=== PATIENT | male | born 1990 | race Caucasian/White ===

== ENCOUNTER 2017-10-29 15:46 | Inpatient (IN) | payer BC, OTHER ==
[~2017-10-29] VITALS: Ht 175.3 cm; Wt 65.8 kg
[2017-10-29 16:40] VITALS: BP 117/65
[2017-10-29 18:32] LABS: *AMPHETAMINE, URINE POSITIVE (NEGATIVE); *BARBITURATE, URINE NEGATIVE (NEGATIVE); *CANNABINOID, URINE POSITIVE (NEGATIVE); *COCCAINE, URINE NEGATIVE (NEGATIVE); *OPIATE, URINE NEGATIVE (NEGATIVE); *PHENCYCLIDINE SCREEN,URINE NEGATIVE (NEGATIVE)
[2017-10-29] MEDS ORDERED: ACETAMINOPHEN 325 MG TABLET PO PRN (19:30)
[2017-10-29] MEDS ORDERED: IBUPROFEN 600 MG TABLET PO PRN (19:30)
[2017-10-29] MEDS ORDERED: MAG HYDROX/AL HYDROX/SIMETH 30 ML LIQUID UDC PO PRN (19:30)
[2017-10-29] MEDS ORDERED: MIRALAX 17 GM POWD.PACK PO PRN (19:30)
[2017-10-29] MEDS ORDERED: MAGNESIUM HYDROXIDE 30 ML LIQUID UDC PO PRN (19:30)
[2017-10-29] MEDS ORDERED: METHOCARBAMOL 750 MG TABLET PO PRN (19:30)
[2017-10-29] MEDS ORDERED: LOPERAMIDE HCL 2 MG CAPSULE PO PRN ×2 (19:30)
[2017-10-29] MEDS ORDERED: DICYCLOMINE HCL 20 MG TABLET PO PRN (19:30)
[2017-10-29] MEDS ORDERED: ONDANSETRON ODT 4 MG TAB.RAPDIS SL PRN (19:30)
[2017-10-29] MEDS ORDERED: HYDROXYZINE PAMOATE 25 MG CAPSULE PO PRN (19:30)
[2017-10-29] MEDS ORDERED: ONDANSETRON 4 MG/2 ML VIAL IM PRN (19:30)
[2017-10-29] MEDS ORDERED: diphenhydrAMINE 50 MG CAPSULE PO PRN (19:30)
[2017-10-29 20:15] VITALS: BP 121/67
[2017-10-29] MEDS ORDERED: diphenhydrAMINE 50 MG CAPSULE PO SCH (21:00)
[2017-10-29 21:23] LABS: BASOPHILS % (AUTO) 0.5 % (0.0-2.0); EOSINOPHILS # (AUTO) 0.1 K/uL (0.0-0.7); EOSINOPHILS % (AUTO) 1.2 % (0.0-7.0); HEMATOCRIT 43.7 % (36.7-47.1); HEMOGLOBIN 14.8 g/dL (12.5-16.3); LYMPHOCYTES # (AUTO) 2.1 K/uL (20.0-40.0); LYMPHOCYTES % (AUTO) 26.3 % (20.5-51.5); MEAN CORPUSCULAR HEMOGLOBIN 29.3 uug (23.8-33.4); MEAN CORPUSCULAR HGB CONC 34 g/dL (32.5-36.3); MEAN CORPUSCULAR VOLUME 86.5 fL (73.0-96.2); MONOCYTES # (AUTO) 0.9 K/uL (2.0-10.0); MONOCYTES % (AUTO) 11.7 % (0.0-11.0); NEUTROPHILS # (AUTO) 4.9 K/uL (1.8-8.9); NEUTROPHILS % (AUTO) 60.3 % (38.5-71.5); PLATELET COUNT (AUTO) 313 K/uL (152-348); RED BLOOD CELL COUNT(AUTO) 5.04 MIL/uL (4.06-5.63); WHITE BLOOD COUNT (AUTO) 8.1 K/uL (3.6-10.2)
[2017-10-29 21:37] LABS: ETHANOL < 3 MG/DL (0-0)
[2017-10-29 21:39] LABS: ALANINE AMINOTRANSFERASE 38 U/L (16-63); ALKALINE PHOSPHATASE 148 U/L (50-136); ASPARTATE AMINOTRANSFERASE 25 U/L (15-37); BILIRUBIN,TOTAL 0.4 mg/dL (0.2-1.0); CARBON DIOXIDE 30 mmol/L (21-32); CHLORIDE 101 mmol/L (98-107); GLUCOSE 91 mg/dL (74-106); POTASSIUM 3.5 mmol/L (3.5-5.1); TOTAL PROTEIN, SERUM 8.2 g/dL (6.4-8.2); UREA NITROGEN, BLOOD 12 mg/dL (7-18)
[2017-10-29 21:48] LABS: THYROID STIMULATING HORMONE 0.809 mIU/mL (0.358-3.740)
[2017-10-29 21:49] LABS: MAGNESIUM 1.9 mg/dL (1.8-2.4)
[2017-10-30 00:25] VITALS: BP 127/74
[2017-10-30 04:18] VITALS: BP 124/72
[2017-10-30 08:00] VITALS: BP 111/66
[2017-10-30] MEDS: CLONIDINE HCL 0.1 MG TABLET PO PRN ×2 (08:42→16:43)
[2017-10-30] MEDS ORDERED: TUBERCULIN,PURIF.PROT.DERIV. 5 TU/0.1 ML TEST ID ONE (09:00)
[2017-10-30 12:00] VITALS: BP 104/62
[2017-10-30 16:00] VITALS: BP 109/63
[2017-10-30] MEDS ORDERED: GABAPENTIN 300 MG CAPSULE PO SCH (16:00)
[2017-10-30] MEDS ORDERED: LITH600C PO (16:01)
[2017-10-30] MEDS ORDERED: FLUO20CA36 PO (16:01)
[2017-10-30] MEDS ORDERED: OLAN15TA3 PO (16:01)
[2017-10-30] MEDS ORDERED: GABA-534 PO (19:29)
[2017-10-30] MEDS ORDERED: IBUP-1955 PO (19:29)
[2017-10-30] MEDS ORDERED: HYDR-3895 PO (19:29)
[2017-10-30] MEDS ORDERED: DIPH50CA37 PO (19:29)
[2017-10-30] MEDS ORDERED: METH-406 PO (19:29)
[2017-10-30 20:00] VITALS: BP 106/67
[2017-10-30] MEDS: GABAPENTIN 300 MG CAPSULE PO SCH (20:39)
[2017-10-30] MEDS ORDERED: LITHIUM CARBONATE 300 MG TABLET PO SCH (21:00)
[2017-10-30] MEDS ORDERED: QUETIAPINE FUMARATE 100 MG TABLET PO ONE (21:00)
[2017-10-31] MEDS: GABAPENTIN 300 MG CAPSULE PO SCH (08:49)
[2017-10-31 08:50] VITALS: BP 102/54
[2017-10-31] MEDS ORDERED: OLANZAPINE 5 MG TABLET PO SCH (09:00)
[2017-10-31 12:07] LABS: HEPATITIS B SURFACE AG Negative (Negative)
== END 2017-10-31 09:15 | disposition other institution (70) | DRG 897 ==
LOC: SRC 16:20
PROVIDERS: ADMIT Internal Medicine; ATTEND Internal Medicine
PROC: HZ2ZZZZ Detoxification Services for Substance Abuse Treatment (ICD-10-PCS; principal; 2017-10-29)
DX: F15.23 Other stimulant dependence with withdrawal (principal); F11.20 Opioid dependence, uncomplicated; F31.9 Bipolar disorder, unspecified; F12.90 Cannabis use, unspecified, uncomplicated; Z91.14 Patient's other noncompliance with medication regimen; F90.9 Attention-deficit hyperactivity disorder, unspecified type; Z59.1 Inadequate housing; F17.210 Nicotine dependence, cigarettes, uncomplicated; F41.9 Anxiety disorder, unspecified; Z59.0 Homelessness; R74.0 Nonspecific elevation of levels of transaminase and lactic acid dehydrogenase [LDH]
CPT/HCPCS: 36415; 80307; 80324; 80349; 83735; 84443; 85025; 86580; 86592; 86705; 86803; 87340; 87806; G0480; Q0163

== ENCOUNTER 2018-04-19 10:32 | Emergency (ER) | payer BC, OTHER ==
[~2018-04-19] VITALS: Ht 170.2 cm; Wt 68.0 kg
[~2018-04-19 10:32] MED LIST: DIPH50CA37 PO; GABA-534 PO; HYDR-3895 PO; IBUP-1955 PO; METH-406 PO
--- NOTE | 2018-04-19 10:45 | NUR ---
CALLED THE PT FOR TRIAGE. PT SAID THE PT IS HERE FOR LAB WORK REQUESTED BY [facility] THE PT IS RESIDING NOW. PT DECIDED TO LEAVE BECAUSE PT WAS NO CLEAR WHAT NEEDS TO BE DONE. EXPLAINED TO PT THAT HE CAN BE CHECKED AND DO BASIC MEDICAL CLEARANCE. BUT PT DECIDED TO LEAVE ANDCOME BACK AGAIN WTH MORE DETAILS. PT WAS TOLD THAT HE IS WELCOMED ANY TIME CHECKED IN.
--- NOTE | 2018-04-19 10:50 | NUR ---
CALLED [facility] TO VERIFY THE REASON PT IS HERE. YAMILET SAID THAT THE PT NEEDS BASIC MEDICAL CLEARANCE. PT AGREED TO STAY AND BE TRIAGED AND SEEN BY .
[2018-04-19 11:31] LABS: BASOPHILS # (AUTO) 0.1 K/uL (0.0-8.0); BASOPHILS % (AUTO) 0.7 % (0.0-2.0); EOSINOPHILS # (AUTO) 0.3 K/uL (0.0-0.7); HEMATOCRIT 38.9 % (36.7-47.1); HEMOGLOBIN 13.3 g/dL (12.5-16.3); LYMPHOCYTES # (AUTO) 1.8 K/uL (20.0-40.0); LYMPHOCYTES % (AUTO) 21.1 % (20.5-51.5); MEAN CORPUSCULAR HEMOGLOBIN 31.4 uug (23.8-33.4); MEAN CORPUSCULAR HGB CONC 34 g/dL (32.5-36.3); MEAN CORPUSCULAR VOLUME 92.2 fL (73.0-96.2); NEUTROPHILS # (AUTO) 5.5 K/uL (1.8-8.9); NEUTROPHILS % (AUTO) 63.2 % (38.5-71.5); PLATELET COUNT (AUTO) 218 K/uL (152-348); RED BLOOD CELL COUNT(AUTO) 4.22 MIL/uL (4.06-5.63); WHITE BLOOD COUNT (AUTO) 8.7 K/uL (3.6-10.2)
[2018-04-19 11:40] LABS: CARBON DIOXIDE 32 mmol/L (21-32); CHLORIDE 104 mmol/L (98-107); GLUCOSE 90 mg/dL (74-106); POTASSIUM 3.9 mmol/L (3.5-5.1); UREA NITROGEN, BLOOD 18 mg/dL (7-18)
[2018-04-19 11:46] LABS: ALANINE AMINOTRANSFERASE 44 U/L (16-63); ALKALINE PHOSPHATASE 105 U/L (50-136); ASPARTATE AMINOTRANSFERASE 28 U/L (15-37); BILIRUBIN,DIRECT 0.1 mg/dL (0.0-0.2); BILIRUBIN,TOTAL 0.5 mg/dL (0.2-1.0); TOTAL PROTEIN, SERUM 7.3 g/dL (6.4-8.2)
[2018-04-19 11:47] LABS: ETHANOL < 3 MG/DL (0-0)
[2018-04-19 11:50] LABS: *BILIRUBIN,URIN NEGATIVE (NEGATIVE); *BLOOD, URINE NEGATIVE (NEGATIVE); *CLARITY,URINE CLEAR (CLEAR); *COLOR,URINE YELLOW (YELLOW); *KETONES,URINE NEGATIVE (NEGATIVE); *PROTEIN,URINE TRACE (NEGATIVE); LEUKOCYTE ESTERASE ,URINE NEGATIVE (NEGATIVE); NITRITE, URINE NEGATIVE (NEGATIVE); PH,URINE 6.5 (5.0-8.0); UGLUCOSE NEGATIVE (NEGATIVE)
[2018-04-19 11:53] LABS: BACTERIA,URINE FEW /HPF (NONE SEEN); MUCUS,URINE FEW /LPF (0-FEW); RBC,URINE NONE SEEN /HPF (0-3); SQUAMOUS EPITHELIAL CELL,UR FEW /HPF (NONE SEEN); WBC,URINE 0-3 /HPF (0-3)
--- NOTE | 2018-04-19 11:54 | NUR ---
Patient discharged to home in stable conditon. Written and verbal after care instructions given. Patient verbalizes understanding of instructions.
[2018-04-19 11:58] LABS: ACETAMINOPHEN < 2.0 ug/mL (10-30)
[2018-04-19 12:00] LABS: *AMPHETAMINE, URINE POSITIVE (NEGATIVE); *BARBITURATE, URINE NEGATIVE (NEGATIVE); *CANNABINOID, URINE NEGATIVE (NEGATIVE); *COCCAINE, URINE NEGATIVE (NEGATIVE); *OPIATE, URINE NEGATIVE (NEGATIVE); *PHENCYCLIDINE SCREEN,URINE NEGATIVE (NEGATIVE)
== END 2018-04-19 11:56 | disposition home or self-care (01) ==
LOC: ER 10:35
DX: Z00.00 Encounter for general adult medical examination without abnormal findings (principal)
CPT/HCPCS: 36415; 80048; 80076; 80307; 81001; 85025; 99284; A4663; G0480 ×2; G0481